=== PATIENT | male | born 1965 | race Caucasian/White ===

== ENCOUNTER 2016-08-19 20:25 | Observation (INO) | payer OTHER ==
[~2016-08-19] VITALS: Ht 182.9 cm; Wt 98.2 kg
[2016-08-19] VITALS (10 sets, daily range): BP systolic 160–192; BP diastolic 80–103; PULSE 81–90; RESP 16–20; TEMP 98–98.5; O2SAT 96–99
[~2016-08-19 20:25] MED LIST: ABIL5TAB6 PO; BACL10TA PO; DICL75 PO; PAXI20TA26 PO
--- NOTE | 2016-08-19 21:13 | PD ---
HPI Chief Complaint: Respiratory Symptoms Time Seen by Provider: 20:43 Travel History International Travel<30 days: No Contact w/Intl Traveler<30days: No History of Present Illness HPI So 51-year-old man who presents to the emergency department complaining of shortness of breath and sharp chest pain ongoing for the past 2 months or so. He states he notices it with exertion, really just after exertion. If he walks to the top of the hill to get a piece of equipment, when he gets to the top he has a chest pain. He goes away with rest. Describes a sharp, left-sided. He also states is getting winded easier. His felt overall like he's had less energy. He's never really had chest pain before. He's had PVCs in the past 6 some lightheadedness and palpitations, but never pain. His a strong family history of heart disease with an uncle who in his 50s, and his dad has had a CABG and 17 stents. He's been told he has high cholesterol in the past, is not treated for any medical problems. History Past Medical History Narrative Medical History of hyperlipidemia Social History Alcohol Use: Yes (2-3 beers, most days) Tobacco Use: No Allergies-Medications (Allergen,Severity, Reaction): Coded Allergies: Penicillin (Verified Allergy, Unknown, UNKNOWN, 08/19/16) PATIENT DOES NOT KNOW BUT WANTS ALLERGY Reported Meds & Prescriptions Reported Meds & Active Scripts Active Review of Systems Except as stated in HPI: all other systems reviewed are Neg Physical Exam Narrative GENERAL: 51-year-old man, generally well-appearing, no acute distress. SKIN: Focused skin assessment warm/dry. HEAD: Atraumatic. Normocephalic. NECK: Trachea midline. No JVD. CARDIOVASCULAR: Regular rate and rhythm. No murmur appreciated. RESPIRATORY: No accessory muscle use. Clear to auscultation. Breath sounds equal bilaterally. GASTROINTESTINAL: Abdomen soft, non-tender, nondistended. Hepatic and splenic margins not palpable. MUSCULOSKELETAL: No obvious deformities. No clubbing. No cyanosis. No edema. NEUROLOGICAL: Awake and alert. No obvious cranial nerve deficits. Motor grossly within normal limits. Normal speech. PSYCHIATRIC: Appropriate mood and affect; insight and judgment normal. Data Data Last Documented VS Vital Signs Date Time Temp Pulse Resp B/P Pulse Ox O2 Delivery O2 Flow Rate FiO2 6/15/17 22:00 84 18 165/80 96 Room Air 08/19/16 20:38 98.5 Orders Electrocardiogram (08/19/16 21:07) Complete Blood Count With Diff (08/19/16 21:07) Comprehensive Metabolic Panel (08/19/16 21:07) Magnesium (Mg) (08/19/16 21:07) Prothrombin Time / Inr (Pt) (08/19/16 21:07) Act Partial Throm Time (Ptt) (08/19/16 21:07) Troponin I (08/19/16 21:07) Lipase (08/19/16 21:07) Chest, Single Ap (08/19/16 21:07) Ecg Monitoring (08/19/16 21:) Bilateral Bp Monitoring (08/19/16:) Iv Access Insert/Monitor (08/19/16 21:) Oximetry (08/19/16 21:07) Oxygen Administration (08/19/16 21:07) Aspirin Chew (Aspirin Chew) (08/19/16:15) Nitroglycerin 2% Oint (Nitroglycerin 2% (08/19/16 21:15) Sodium Chloride 0.9% Flush (Ns Flush) (08/19/16:15) Sodium Chlorid 0.9% 500 Ml Inj (Ns 500 M (08/19/16 21:15) Admit Order (Ed Use Only) (08/19/16 ) Place In Observation (08/19/16 22:44) Activity Bed Rest With Brp (08/19/16 22:44) Vital Signs (Adult) Q4H (08/19/16 22:44) Cardiac Rhythm .As Directed (08/19/16 22:44) Notify Dr: Other .PRN (08/19/16 22:44) Notify DrBobbi Parameters (08/19/16 22:44) Resp Oxygen Nasal Cannula (08/19/16 ) Ckmb (Isoenzyme) Profile (08/20/16 00:30) Ckmb (Isoenzyme) Profile (08/20/16 03:30) Troponin I (08/20/16 00:30) Troponin I (08/20/16 03:30) Electrocardiogram (08/20/16 00:30) Electrocardiogram (08/20/16 03:30) ^ Obtain (08/19/16 22:44) Sodium Chloride 0.9% Flush (Ns Flush) (08/19/16 22:45) Sodium Chloride 0.9% Flush (Ns Flush) (08/20/16 09:00) [employer] / Telemetry [email or web address] (08/19/16 22:44) Labs Laboratory Tests Test 08/19/16 21:10 White Blood Count 8.0 TH/MM3 Red Blood Count 4.92 MIL/MM3 Hemoglobin 15.7 GM/DL Hematocrit 45.9 % Mean Corpuscular Volume 93.3 FL Mean Corpuscular Hemoglobin 31.9 PG Mean Corpuscular Hemoglobin 34.2 % Concent Red Cell Distribution Width 12.2 % Platelet Count 222 TH/MM3 Mean Platelet Volume 9.4 FL Neutrophils (%) (Auto) 49.3 % Lymphocytes (%) (Auto) 35.2 % Monocytes (%) (Auto) 8.2 % Eosinophils (%) (Auto) 6.4 % Basophils (%) (Auto) 0.9 % Neutrophils # (Auto) 3.9 TH/MM3 Lymphocytes # (Auto) 2.8 TH/MM3 Monocytes # (Auto) 0.7 TH/MM3 Eosinophils # (Auto) 0.5 TH/MM3 Basophils # (Auto) 0.1 TH/MM3 CBC Comment DIFF FINAL Differential Comment Prothrombin Time 10.7 SEC Prothromb Time International 1.0 RATIO Ratio Activated Partial 28.6 SEC Thromboplast Time Sodium Level 140 MEQ/L Potassium Level 3.5 MEQ/L Chloride Level 105 MEQ/L Carbon Dioxide Level 22.5 MEQ/L Anion Gap 13 MEQ/L Blood Urea Nitrogen 12 MG/DL Creatinine 1.20 MG/DL Estimat Glomerular Filtration 64 ML/MIN Rate Random Glucose 143 MG/DL Calcium Level 8.5 MG/DL Magnesium Level 2.0 MG/DL Total Bilirubin 0.5 MG/DL Aspartate Amino Transf 30 U/L (AST/SGOT) Alanine Aminotransferase 57 U/L (ALT/SGPT) Alkaline Phosphatase 81 U/L Troponin I 0.05 NG/ML Total Protein 7.7 GM/DL Albumin 3.8 GM/DL Lipase 118 U/L [facility] Medical Decision Making Medical Screen Exam Complete: Yes Emergency Medical Condition: Yes Interpretation(s) My review of EKG: Normal sinus rhythm at a rate of 85, leftward axis, normal intervals, no definite evidence of acute ischemia. LABS: CBC unremarkable. CMP is unremarkable Lipase is normal Troponin is negative. Coags unremarkable Chest x-ray: Negative. Differential Diagnosis ACS, anxiety or stress, PE, heart failure, hypertension, other Narrative Course Medical decision making INITIAL cause a 47-year-old man who presents to the emergency department with appears to be exertional sharp left-sided chest pain ongoing for couple months was steadily worsening. Is concerning for ACS. His a strong family history. He looks overall well. Initial EKG is nondiagnostic. We'll check an initial labs, x-ray, plan on observation and the chest pain Center. Diagnosis Primary Impression: Chest pain Clay Rios MD Aug 19, 2016 21:13
[2016-08-19] MEDS ORDERED: NITROGLYCERIN 2% OINT 1 GM PACKET TOP ONE (21:15)
[2016-08-19] MEDS ORDERED: SODIUM CHLORIDE 0.9% FLUSH 10 ML FLUSH IVF PRN (21:15)
[2016-08-19] MEDS ORDERED: ASPIRIN 81 MG CHEW TAB PO ONE (21:15)
[2016-08-19] MEDS ORDERED: SODIUM CHLORID 0.9% 500 ML INJ 500 ML IV ONE (21:15)
[2016-08-19 21:20] LABS: AUTOMATED NEUTROPHIL # 3.9 TH/MM3 (1.8-7.7); BASOPHIL # 0.1 TH/MM3 (0-0.2); BASOPHIL % 0.9 % (0.0-2.0); EOSINOPHIL # 0.5 TH/MM3 (0-0.4); EOSINOPHIL % 6.4 % (0.0-4.0); HEMATOCRIT 45.9 % (39.0-51.0); HEMO FLAGS DIFF FINAL; LYMPH % 35.2 % (9.0-44.0); LYMPHOCYTE # 2.8 TH/MM3 (1.0-4.8); MEAN CELL VOLUME 93.3 FL (80.0-100.0); MEAN CORPUSCULAR HEMOGLOBIN 31.9 PG (27.0-34.0); MEAN CORPUSCULAR HGB CONC 34.2 % (32.0-36.0); MONO % 8.2 % (0.0-8.0); NEUT % 49.3 % (16.0-70.0); PLATELET COUNT 222 TH/MM3 (150-450); RED BLOOD COUNT 4.92 MIL/MM3 (4.50-5.90); RED CELL DISTRIBUTION WIDTH 12.2 % (11.6-17.2)
[2016-08-19 21:31] LABS: CHLORIDE 105 MEQ/L (98-107); POTASSIUM 3.5 MEQ/L (3.5-5.1); SODIUM (NA) 140 MEQ/L (136-145)
[2016-08-19 21:35] LABS: ANION GAP 13 MEQ/L (5-15); BICARBONATE 22.5 MEQ/L (21.0-32.0); BLOOD UREA NITROGEN 12 MG/DL (7-18)
[2016-08-19 21:36] LABS: APTT (PATIENT) 28.6 SEC (24.3-30.1); PROTHROMBIN TIME - PATIENT 10.7 SEC (9.8-11.6)
[2016-08-19 21:37] LABS: ALT (GPT) 57 U/L (12-78)
[2016-08-19 21:38] LABS: AST (GOT) 30 U/L (15-37); GLOMERULAR FILTRATION RATE 64 ML/MIN (>89)
[2016-08-19 21:39] LABS: TOTAL BILIRUBIN ADULT 0.5 MG/DL (0.2-1.0)
[2016-08-19 21:40] LABS: ALKALINE PHOSPHATASE 81 U/L (45-117)
--- NOTE | 2016-08-19 21:50 | RADHPO ---
EXAM DATE/TIME: 08/19/2016 21:39 [facility] COMPARISON: No previous studies available for comparison. INDICATIONS : Chest pain and shortness of breath for two weeks. MEDICAL HISTORY : None. SURGICAL HISTORY : None. ENCOUNTER: Initial ACUITY: 2 weeks PAIN SCORE: 4/10 LOCATION: chest Center FINDINGS: A single view of the chest demonstrates the lungs to be symmetrically aerated without evidence of mas s, infiltrate or effusion. The cardiomediastinal contours are unremarkable. Osseous structures are intact. CONCLUSION: No evidence of acute cardiopulmonary disease. Boby Olivera MD on August 19, 2016 at 21:47 Board Certified Radiologist. This report was verified electronically.
[2016-08-19] MEDS ORDERED: SODIUM CHLORIDE 0.9% FLUSH 10 ML FLUSH PRN (22:45)
[2016-08-20] VITALS: BP 145/83; PULSE 74; RESP 18; TEMP 96.4; O2SAT 97
[2016-08-20 01:13] LABS: CREATINE KINASE 111 U/L (39-308)
[2016-08-20 01:25] LABS: CKMB 0.7 NG/ML (0.5-3.6)
[2016-08-20 04:00] VITALS: BP 122/78; PULSE 69; RESP 18; TEMP 97; O2SAT 98
[2016-08-20 07:16] VITALS: PULSE 79
[2016-08-20 08:00] VITALS: BP 146/91; PULSE 68; RESP 18; TEMP 96.8; O2SAT 99
[2016-08-20] MEDS ORDERED: SODIUM CHLORIDE 0.9% FLUSH 10 ML FLUSH SCH (09:00)
--- NOTE | 2016-08-20 09:39 | HHI.HP ---
cc: Faizan Monterroso MD HPI Service [facility] Primary Care Physician No Primary Care Physician Admission Diagnosis chest pain Diagnoses: (1) SOB (shortness of breath) Diagnosis: Principal (2) Chest pain Diagnosis: Principal (3) HTN (hypertension) Diagnosis: Principal (4) Hypertensive urgency Diagnosis: Principal Chief Complaint: difficulty breathing, chest pain Travel History International Travel<30 Days: No Contact w/Intl Traveler <30 Da: No Traveled to Known Affected Are: No History of Present Illness Written by Elisa Fry PA-C acting as scribe for Dr. Duenas on 08/20/16 at ~0930. 51-year-old male with history of hyperlipidemia and HTN not currently on medications as well as daily alcohol use presents with complaint of difficulty breathing and chest pain. States patient states that over the last couple of weeks has been hard to breathe. He states he was doing yard work on Tuesday and couldn't catch his breath. 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 He states he additionally had sharp knife-like pains over the left anterior chest intermittently and lasting a couple of minutes at a time. He states he had these even at night when he was sleeping. He states the pain occurs more so after exertion while he is recovering rather than during it. He denies any radiation of pain elsewhere. He does state that the nitroglycerin procedure the ED helped his breathing significantly. The patient has a significant family history of heart disease. Patient had a treadmill test performed in 2008 which was negative. He states he had a nuclear treadmill test about 20 years ago when he saw his father's meat carver. He states he has a history of frequent PVCs and they can last between 2-3 minutes at a time. Patient has appointment with primary care physician, Dr. Monterroso, next week. Review of Systems Except as stated in HPI: all other systems reviewed are Neg Past Family Social History Past Medical History Untreated hyperlipidemia and hypertension Past Surgical History L4-L5 surgery Appendectomy Reported Medications None Allergies: Coded Allergies: Penicillin (Verified Allergy, Unknown, UNKNOWN, 08/19/16) PATIENT DOES NOT KNOW BUT WANTS ALLERGY Family History Father: Diabetic, 14 stents, CABG 4 at age 68. Paternal uncle: at age 52 from [place]. Sister: Hypertension; brain aneurysm which was clipped Social History Patient drinks 4-5 beers per day. He has never gone through withdrawal. Denies any history of tobacco use. Denies any history of illicit drug use. Physical Exam Vital Signs Vital Signs Date Time Temp Pulse Resp B/P Pulse Ox O2 Delivery O2 Flow Rate FiO2 08/20/16 08:00 96.8 68 18 146/91 99 08/20/16 04:00 97.0 69 18 122/78 98 08/20/16 00:00 96.4 74 18 145/83 97 08/19/16 23:15 98.0 82 18 161/94 97 08/19/16 22:52 96 21 08/19/16 22:30 90 18 176/91 96 Room Air 08/19/16 22:00 84 18 165/80 96 Room Air 08/19/16 21:45 88 18 177/86 96 Room Air 08/19/16 21:30 86 18 182/93 97 Room Air 08/19/16 21:15 90 20 174/98 97 Room Air 08/19/16 21:00 86 20 98 Room Air 08/19/16 20:45 98 Room Air 08/19/16 20:45 87 20 184/94 98 Room Air 192/91 08/19/16 20:45 98 Room Air 08/19/16 20:38 98.5 85 16 160/103 99 Physical Exam GENERAL: This is a well-nourished, well-developed patient, in no apparent distress. SKIN: No rashes, ecchymoses or lesions. Warm and dry. HEAD: Atraumatic. Normocephalic. EYES: No scleral icterus. No injection or drainage. ENT: MMM. Uvula midline. Airway patent. CHEST: No reproducible chest wall tenderness. CARDIOVASCULAR: Regular rate and rhythm without murmurs, gallops, or rubs. RESPIRATORY: Clear to auscultation. Breath sounds equal bilaterally. No wheezes , rales, or rhonchi. GASTROINTESTINAL: Abdomen soft, non-tender, nondistended. MUSCULOSKELETAL: No lower extremity edema bilaterally. NEUROLOGICAL: Awake and alert. Motor grossly within normal limits. Normal speech. Laboratory Laboratory Tests Test 08/19/16 08/20/16 08/20/16 21:10 00:40 03:25 White Blood Count 8.0 Red Blood Count 4.92 Hemoglobin 15.7 Hematocrit 45.9 Mean Corpuscular Volume 93.3 Mean Corpuscular Hemoglobin 31.9 Mean Corpuscular Hemoglobin 34.2 Concent Red Cell Distribution Width 12.2 Platelet Count 222 Mean Platelet Volume 9.4 Neutrophils (%) (Auto) 49.3 Lymphocytes (%) (Auto) 35.2 Monocytes (%) (Auto) 8.2 Eosinophils (%) (Auto) 6.4 Basophils (%) (Auto) 0.9 Neutrophils # (Auto) 3.9 Lymphocytes # (Auto) 2.8 Monocytes # (Auto) 0.7 Eosinophils # (Auto) 0.5 Basophils # (Auto) 0.1 CBC Comment DIFF FINAL Differential Comment Prothrombin Time 10.7 Prothromb Time International 1.0 Ratio Activated Partial 28.6 Thromboplast Time Sodium Level 140 Potassium Level 3.5 Chloride Level 105 Carbon Dioxide Level 22.5 Anion Gap 13 Blood Urea Nitrogen 12 Creatinine 1.20 Estimat Glomerular Filtration 64 Rate Random Glucose 143 Calcium Level 8.5 Magnesium Level 2.0 Total Bilirubin 0.5 Aspartate Amino Transf 30 (AST/SGOT) Alanine Aminotransferase 57 (ALT/SGPT) Alkaline Phosphatase 81 Troponin I 0.05 0.05 0.05 Total Protein 7.7 Albumin 3.8 Lipase 118 Total Creatine Kinase 111 77 Creatine Kinase MB 0.7 Result Diagram: 08/19/16210908/19/162109 Imaging Last Impressions Chest X-Ray 08/19/162106 Signed Impressions: Service Date/Time: August 21:39 - CONCLUSION: No evidence of acute cardiopulmonary disease. Boby Olivera MD Assessment and Plan Assessment and Plan 51-year-old male with: Chest pain/shortness of breath: Patient has had sharp pain over the left chest, but what may be of more concern is his shortness of breath. He had relief with nitroglycerin. Troponin times 3 of 0.05. EKGs 3 with left axis deviation and no evidence of ischemia. There are some supraventricular PVCs present; also has incomplete right bundle branch block. -Continue 325 mg daily aspirin -Nitroglycerin/[place]/morphine prn chest pain -Telemetry -Patient to undergo nuclear stress test as ETT is contraindicated due to history of frequent PVCs. Hypertension: History of untreated hypertension. Patient has been persistently hypertensive here with hypertensive urgency reaching 192/91. -Clonidine prn -May need to start on medication on discharge Daily alcohol use: Patient denies ever going through withdrawal. Interpretive Naturalist on cessation. GI prophylaxis: Protonix 40 mg by mouth daily DVT prevention: SCDs This note was transcribed by néstor DUONG I, Dr. Aly Duenas personally performed the history, physical exam, and medical decision making; and confirmed the accuracy of the information in the transcribed note. Authenticated by Dr. Aly Duenas on 08/20/16 at 13:26. Elisa Fry Aug 20, 2016 09:39 Aly Duenas MD Aug 20, 2016 13:26
[2016-08-20] MEDS ORDERED: ACETAMINOPHEN/HYDROcodone 325 MG/7.5 MG TAB PO PRN (11:00)
[2016-08-20] MEDS ORDERED: NITROGLYCERIN 0.4 MG SL 25 TABS/BTL SL PRN (11:00)
[2016-08-20] MEDS ORDERED: ASPIRIN EC 325 MG TABEC PO SCH (11:00)
[2016-08-20] MEDS ORDERED: cloNIDine HCL 0.1 MG TAB PO PRN (11:00)
[2016-08-20] MEDS ORDERED: PANTOPRAZOLE SOD 40 MG DELAYED RELEASE TAB PO SCH (11:00)
[2016-08-20] MEDS ORDERED: ACETAMINOPHEN 500 MG CPLT PO PRN (11:00)
[2016-08-20] MEDS ORDERED: MORPHINE SULFATE 4 MG/ML INJ IV PRN (11:00)
[2016-08-20] MEDS ORDERED: REGADENOSON INJ 0.4 MG/5 ML SYR IV ONE (11:57)
[2016-08-20 12:00] VITALS: BP 155/104; PULSE 71; RESP 18; TEMP 97.4; O2SAT 98
--- NOTE | 2016-08-20 13:33 | RADHPO ---
EXAM DATE/TIME: 08/20/2016 11:51 CORRECTION~Corrected on: August 25, 2016; added Radiation Dose and Ejection Fraction [facility] COMPARISON: No previous studies available for comparison. INDICATIONS : Left sided chest pain with dyspnea, palpitations and lightheaded. Angina. DOSE: 25.4 mCi Tc99m Myoview at stress. 8.5 mCi Tc99m Myoview at rest. 0.4 mg Lexiscan RADIATION DOSE: ~5.37 CTDIvol(mGy) STRESS SYMPTOMS: Dyspnea, lightheaded and right shoulder pain. EJECTION FRACTION: 49% MEDICAL HISTORY : Hypertension. SURGICAL HISTORY : Appendectomy. Lumbar surgery. ENCOUNTER: Initial ACUITY: 2 weeks PAIN SCALE: 4/10 LOCATION: Left chest TECHNIQUE: The patient underwent pharmacologic stress with infusion of prescribed dose. Continuous ECG tracing was monitored during stress. Gated SPECT imaging was performed after stress and conventional SPECT imaging was performed at rest. The examination was performed on a SPECT/CT scanner, both attenuation and non- corrected datasets were reviewed. FINDINGS: DISTRIBUTION: The maximum perfused segment at stress is in the anterolateral wall. PERFUSION STUDY: The pattern of perfusion at stress is within normal limits. GATED STUDY: There is intact wall motion and thickening without hypokinetic or dyskinetic segments. CONCLUSION: 1. No reversible perfusion defect to suggest stress-induced myocardial ischemia identified. RISK CATEGORY: Low (<1% Annual Mortality Rate) Bal Rm MD on August 20, 2016 at 13:29 Board Certified Radiologist. This report was verified electronically. [facility]
[2016-08-20] MEDS ORDERED: LISI10TA3 PO (14:26)
--- NOTE | 2016-08-20 14:26 | HHI.DCPOC ---
Discharge Care Plan Diagnosis: (1) Chest pain (2) SOB (shortness of breath) (3) HTN (hypertension) (4) Hypertensive urgency Your Health Problems Are: Chest Pain Goals to Promote Your Health * To prevent worsening of your condition and complications * To maintain your health at the optimal level Directions to Meet Your Goals Take your medications as prescribed Follow your dietary instruction Follow activity as directed Keep your appointments as scheduled Take your immunizations and boosters as scheduled If your symptoms worsen call your PCP, if no PCP go to Urgent Care Center or Emergency Room Smoking is Dangerous to Your Health. Avoid second hand smoke Call the 24-hour hour crisis hotline for domestic abuse at Elisa Fry Aug 20, 2016 14:26
--- NOTE | 2016-08-20 14:30 | TR ---
Date Performed: 08/20/2016 Time Performed: 12:09:14 DOCTOR: Elpidio Winters DRUG LIST: CLINICAL HISTORY: CHEST PAIN REASON FOR TEST: Chest pain REASON FOR ENDING: OBSERVATION: CONCLUSION: Lexiscan stress test was performed under standard four minute protocol. Radionuclid e was injected one minute prior to ending the test. No electrocardiographic abormalities were present to suggest ischemia. Nuclear imaging and interpretation are pending. COMMENTS:
--- NOTE | 2016-08-20 22:29 | EKG ---
Date Performed: 08/20/2016 Time Performed: 03:15:10 PTAGE: 51 years EKG: Sinus rhythm WITH OCCASIONAL SUPRAVENTRICULAR PREMATURE COMPLEXES BORDERLINE LEFT AXIS DEVIATION POSSIBLE RIGHT V ENTRICULAR CONDUCTION DELAY BORDERLINE ECG PREVIOUS TRACING : 08/20/2016 00.17 DOCTOR: Mariah Esposito Interpretating Date/Time 08/20/2016 22:27:18
--- NOTE | 2016-08-20 22:31 | EKG ---
Date Performed: 08/20/2016 Time Performed: 00:17:54 PTAGE: 51 years EKG: Sinus rhythm MARKED LEFT AXIS DEVIATION ABNORMAL ECG PREVIOUS TRACING : 08/19/2016 20.59 DOCTOR: Mariah Esposito Interpretating Date/Time 08/20/2016 22:30:44
--- NOTE | 2016-08-20 22:35 | EKG ---
Date Performed: 08/19/2016 Time Performed: 20:59:11 PTAGE: 51 years EKG: Sinus rhythm WITH OCCASIONAL PREMATURE ATRIAL COMPLEXES BORDERLINE LEFT AXIS DEVIATION MINIMAL VOLTAGE CRITERIA FOR LVH, CONSIDER NORMAL VARIANT BORDERLINE ECG PREVIOUS TRACING : 09/06/2008 22.18 DOCTOR: Mariah Esposito Interpretating Date/Time 08/20/2016 22:34:06
== END 2016-08-20 15:41 | disposition home or self-care (01) ==
LOC: PHED 20:25 → PHEDA 22:46 → PH3B 23:23
PROVIDERS: ADMIT Family Medicine; ATTEND Family Medicine
DX: R07.89 Other chest pain (principal); R06.02 Shortness of breath; I49.3 Ventricular premature depolarization; I16.0 Hypertensive urgency; I45.10 Unspecified right bundle-branch block; Z88.0 Allergy status to penicillin; Z82.49 Family history of ischemic heart disease and other diseases of the circulatory system
CPT/HCPCS: 71010; 78452; 80053; 82550; 82552; 83690; 83735; 84484; 85025; 85610; 85730; 93005; 93017; 96360; 99285; A9502; G0378; J2785; J7040

== ENCOUNTER 2016-12-05 21:25 | Inpatient (IN) | payer OTHER ==
[~2016-12-05] VITALS: Ht 182.9 cm; Wt 96.0 kg
[~2016-12-05 21:25] MED LIST changes: -ABIL5TAB6 PO; -BACL10TA PO; -DICL75 PO; +LISI10TA3 PO; -PAXI20TA26 PO
[2016-12-05] MEDS ORDERED: SODIUM CHLOR 0.9% 1000 ML INJ 1,000 ML IV SCH (21:39)
[2016-12-05] MEDS ORDERED: ONDANSETRON HCL 4 MG/2 ML VIAL IVP ONE (21:45)
[2016-12-05] MEDS ORDERED: KETOROLAC TROMETHAMINE 30 MG/ML (IVP) VIAL IVP ONE (21:45)
[2016-12-05] MEDS ORDERED: MORPHINE SULFATE 4 MG/ML INJ IV PUSH ONE (21:45)
[2016-12-05 21:59] VITALS: O2SAT 98
[2016-12-05 22:06] LABS: AUTOMATED NEUTROPHIL # 4.6 TH/MM3 (1.8-7.7); BASOPHIL # 0.1 TH/MM3 (0-0.2); BASOPHIL % 1.1 % (0.0-2.0); EOSINOPHIL # 0.7 TH/MM3 (0-0.4); EOSINOPHIL % 6.8 % (0.0-4.0); HEMATOCRIT 45.7 % (39.0-51.0); HEMO FLAGS DIFF FINAL; LYMPH % 39.9 % (9.0-44.0); LYMPHOCYTE # 4.1 TH/MM3 (1.0-4.8); MEAN CELL VOLUME 95.6 FL (80.0-100.0); MEAN CORPUSCULAR HEMOGLOBIN 32.6 PG (27.0-34.0); MEAN CORPUSCULAR HGB CONC 34.1 % (32.0-36.0); MONO % 7.6 % (0.0-8.0); NEUT % 44.6 % (16.0-70.0); PLATELET COUNT 256 TH/MM3 (150-450); RED BLOOD COUNT 4.78 MIL/MM3 (4.50-5.90); RED CELL DISTRIBUTION WIDTH 13.1 % (11.6-17.2); WHITE BLOOD COUNT 10.3 TH/MM3 (4.0-11.0)
[2016-12-05 22:07] LABS: BLOOD, URINE LARGE (NEG); GLUCOSE,URINE NEG (NEG); KETONE, URINE NEG (NEG); NITRITE,URINE NEG (NEG); PH, URINE 5.5 (5.0-8.5)
[2016-12-05 22:09] VITALS: BP 174/97; PULSE 77; RESP 20; O2SAT 96
[2016-12-05 22:12] LABS: CHLORIDE 100 MEQ/L (98-107); POTASSIUM 3.2 MEQ/L (3.5-5.1); SODIUM (NA) 135 MEQ/L (136-145)
[2016-12-05 22:16] LABS: ANION GAP 9 MEQ/L (5-15); BICARBONATE 25.6 MEQ/L (21.0-32.0); BLOOD UREA NITROGEN 16 MG/DL (7-18)
--- NOTE | 2016-12-05 22:17 | PD ---
HPI Chief Complaint: Flank/Kidney Pain Time Seen by Provider: 21:36 Travel History International Travel<30 days: No Contact w/Intl Traveler<30days: No Traveled to known affect area: No History of Present Illness HPI Patient is a 51-year-old male who comes in complaining of left-sided flank pain that started suddenly when he returned home from a trip to [place]. He says the pain wraps around to his front. He has never had pain like this before. He did have an episode of vomiting when he arrived here. He denies fever or chills. He denies any issues urinating. He says the pain is "inside." He did not take anything at home for the pain. PFSH Past Medical History Arthritis: Yes Anxiety: Yes Heart Rhythm Problems: Yes (PVCs) Cancer: No Cardiac Catheterization: No Cardiovascular Problems: Yes High Cholesterol: Yes Chest Pain: Yes (on admit) Congestive Heart Failure: No Diabetes: No Diminished Hearing: No Endocrine: No Genitourinary: No Hypertension: Yes (Borderline) Immune Disorder: No Musculoskeletal: Yes Neurologic: No Psychiatric: No Reproductive: No Respiratory: No Immunizations Current: Yes Myocardial Infarction: No Tetanus Vaccination: < 5 Years Influenza Vaccination: No Past Surgical History Abdominal Surgery: Yes (appy) Appendectomy: Yes Cardiac Surgery: No Coronary Artery Bypass Graft: No Ear Surgery: No Endocrine Surgery: No Eye Surgery: No Genitourinary Surgery: No Gynecologic Surgery: No Neurologic Surgery: Yes (l4-l5 back surgery) Oral Surgery: No Thoracic Surgery: No Other Surgery: Yes Social History Alcohol Use: Yes (4-5 beers daily) Tobacco Use: No Substance Use: No Allergies-Medications (Allergen,Severity, Reaction): Coded Allergies: penicillin G (Unverified Allergy, Unknown, UNKNOWN, 12/05/16) PATIENT DOES NOT KNOW BUT WANTS ALLERGY Reported Meds & Prescriptions Reported Meds & Active Scripts Active Lisinopril 10 Mg Tab 10 Mg PO DAILY Review of Systems Except as stated in HPI: all other systems reviewed are Neg General / Constitutional: No: Fever, Chills HENT: No: Headaches, Lightheadedness Cardiovascular: No: Chest Pain or Discomfort Respiratory: No: Shortness of Breath Gastrointestinal: Positive: Nausea, Vomiting, Abdominal Pain Genitourinary: Positive: Flank Pain, No: Dysuria, Hematuria Skin: No Rash, No Change in Pigmentation Neurologic: No: Weakness, Dizziness Physical Exam Narrative GENERAL: Awake and alert, in no acute distress. SKIN: Focused skin assessment warm/dry. HEAD: Atraumatic. Normocephalic. EYES: Pupils equal and round. No scleral icterus. ENT: Mucous membranes pink and moist. NECK: Trachea midline. No JVD. CARDIOVASCULAR: Regular rate and rhythm. No murmur appreciated. RESPIRATORY: No accessory muscle use. Clear to auscultation. Breath sounds equal bilaterally. GASTROINTESTINAL: Abdomen soft, nondistended. Left sided CVA tenderness. Tender to palpation of the left lower quadrant suprapubic area. No rebound or guarding. MUSCULOSKELETAL: No obvious deformities. No clubbing. No cyanosis. No edema. NEUROLOGICAL: Awake and alert. No obvious cranial nerve deficits. Motor grossly within normal limits. Normal speech. PSYCHIATRIC: Appropriate mood and affect; insight and judgment normal. Data Data Last Documented VS Vital Signs Date Time Temp Pulse Resp B/P (MAP) Pulse Ox O2 Delivery O2 Flow Rate FiO2 12/05/16 22:09 77 20 174/97 (122) 96 Room Air Orders Orders Complete Blood Count With Diff (12/05/16 21:39) Comprehensive Metabolic Panel (12/05/16 21:39) Urinalysis - C+S If Indicated (12/05/16 21:39) Ct Abd/Pel W/O Iv Contrast (12/05/16 21:39) Iv Access Insert/Monitor (12/05/16 21:39) Ecg Monitoring (12/05/16 21:39) Oximetry (12/05/16 21:39) Morphine Inj (Morphine Inj) (12/05/16 21:45) Ondansetron Inj (Zofran Inj) (12/05/16 21:45) Sodium Chlor 0.9% 1000 Ml Inj (Ns 1000 M (12/05/16 21:39) Sodium Chloride 0.9% Flush (Ns Flush) (12/05/16 21:45) Ketorolac Inj (Toradol Inj) (12/05/16 21:45) Hydromorphone Pf Inj (Dilaudid Pf Inj) (12/05/16 22:30) Potassium Chloride (Kcl) (12/05/16 22:30) Hydromorphone Pf Inj (Dilaudid Pf Inj) (12/05/16 23:30) Sodium Chlor 0.9% 1000 Ml Inj (Ns 1000 M (12/05/16 23:30) Labs Laboratory Tests Test 12/05/16 21:48 12/05/16 21:58 White Blood Count 10.3 TH/MM3 Red Blood Count 4.78 MIL/MM3 Hemoglobin 15.6 GM/DL Hematocrit 45.7 % Mean Corpuscular Volume 95.6 FL Mean Corpuscular Hemoglobin 32.6 PG Mean Corpuscular Hemoglobin Concent 34.1 % Red Cell Distribution Width 13.1 % Platelet Count 256 TH/MM3 Mean Platelet Volume 9.9 FL Neutrophils (%) (Auto) 44.6 % Lymphocytes (%) (Auto) 39.9 % Monocytes (%) (Auto) 7.6 % Eosinophils (%) (Auto) 6.8 % Basophils (%) (Auto) 1.1 % Neutrophils # (Auto) 4.6 TH/MM3 Lymphocytes # (Auto) 4.1 TH/MM3 Monocytes # (Auto) 0.8 TH/MM3 Eosinophils # (Auto) 0.7 TH/MM3 Basophils # (Auto) 0.1 TH/MM3 CBC Comment DIFF FINAL Differential Comment Blood Urea Nitrogen 16 MG/DL Creatinine 1.20 MG/DL Random Glucose 151 MG/DL Total Protein 8.0 GM/DL Albumin 4.0 GM/DL Calcium Level 8.5 MG/DL Alkaline Phosphatase 85 U/L Aspartate Amino Transf (AST/SGOT) 33 U/L Alanine Aminotransferase (ALT/SGPT) 54 U/L Total Bilirubin 0.4 MG/DL Sodium Level 135 MEQ/L Potassium Level 3.2 MEQ/L Chloride Level 100 MEQ/L Carbon Dioxide Level 25.6 MEQ/L Anion Gap 9 MEQ/L Estimat Glomerular Filtration Rate 64 ML/MIN Urine Color YELLOW Urine Turbidity SLIGHT Urine pH 5.5 Urine Specific [place] 1.026 Urine Protein 30 mg/dL Urine Glucose (UA) NEG mg/dL Urine Ketones NEG mg/dL Urine Occult Blood LARGE Urine Nitrite NEG Urine Bilirubin NEG Urine Leukocyte Esterase NEG Urine RBC 50-99 /hpf Urine WBC 0-2 /hpf Urine Squamous Epithelial Cells 0-5 /hpf Urine Uric Acid Crystals FEW /hpf Urine Bacteria OCC /hpf Urine Mucus MOD /lpf Urine Yeast (Budding) RARE Microscopic Urinalysis Comment CULT NOT INDICATED MDM Medical Decision Making Medical Screen Exam Complete: Yes Emergency Medical Condition: Yes Medical Record Reviewed: Yes Differential Diagnosis UTI versus pyelonephritis versus renal stone Narrative Course Patient is a 51-year-old male who comes in complaining of left-sided flank pain. Exam shows left CVA tenderness as well as tenderness to the left lower quadrant suprapubic area. IV established, labs sent. Patient given IV fluids, morphine, Toradol. He continues to have pain, given a dose of dilaudid. I spoke with Dr. Laughlin of urology, who says if his pain is controlled, he can be discharged to follow up in the office. Patient is still have severe pain and requiring more pain medicine. I spoke with Dr. Laughlin again who suggests admission to medicine. He says he will place a ureteral stent tomorrow, keep NPO after midnight. Diagnosis Primary Impression: Hydronephrosis with urinary obstruction due to ureteral calculus Admitting Information Admitting Physician Requests: Admit Shonna Feldman MD Dec 05, 2016 22:17
[2016-12-05 22:19] LABS: URINE COLOR YELLOW (YELLW/STRAW)
[2016-12-05 22:19] LABS: ALT (GPT) 54 U/L (12-78); AST (GOT) 33 U/L (15-37); GLOMERULAR FILTRATION RATE 64 ML/MIN (>89)
[2016-12-05 22:20] LABS: MUCUS URINE MOD /lpf (OCC); SQUAMOUS EPITHELIAL CELL URINE 0-5 /hpf (0-5)
[2016-12-05 22:20] LABS: TOTAL BILIRUBIN ADULT 0.4 MG/DL (0.2-1.0)
[2016-12-05 22:21] LABS: URIC ACID CRYSTALS, URINE FEW /hpf
[2016-12-05 22:22] LABS: ALKALINE PHOSPHATASE 85 U/L (45-117)
[2016-12-05 22:22] LABS: BACTERIA, URINE OCC /hpf; COMMENT (UR) CULT NOT INDICATED; CULTURE IF INDICATED CULT NOT INDICATED; WBC, URINE 0-2 /hpf (0-5)
[2016-12-05] MEDS ORDERED: POTASSIUM CHLORIDE 10 MEQ CONTROLLED RELEASE TAB PO ONE (22:30)
[2016-12-05] MEDS ORDERED: HYDROmorphone HCL PF 1 MG/ML VIAL IV PUSH ONE ×2 (22:30→23:30)
--- NOTE | 2016-12-05 22:36 | RADRPT ---
EXAM DATE/TIME: 12/05/2016 21:58 [facility] COMPARISON: No previous studies available for comparison. INDICATIONS : Left flank and back pain. Nausea. ORAL CONTRAST: No oral contrast ingested. RADIATION DOSE: 19.44 CTDIvol (mGy) MEDICAL HISTORY : None SURGICAL HISTORY : Appendectomy. Fusion, lumbar. ENCOUNTER: Initial ACUITY: 1 day PAIN SCALE: 9/10 LOCATION: Left flank TECHNIQUE: No colic protocol. Volumetric scanning of the abdomen and pelvis was performed. Using automated exp osure control and adjustment of the mA and/or kV according to patient size, radiation dose was kept a s low as reasonably achievable to obtain optimal diagnostic quality images. DICOM format image data is available electronically for review and comparison. FINDINGS: Right side: No evidence of hydronephrosis. 4 mm calcified stones in the upper pole and lower pole. Normal dimen myron of the ureter and no calcifications in the ureter. Left side: There is a 7 mm calcified stone in the proximal one third of the left ureter causing mild proximal ur eteric dilation and mild hydronephrosis. 2 mm calcified stone collecting system of the lower pole. Bladder: Smooth margins. No calcifications within the lumen. Other: No calcified gallstones. No dilated loops of small or large bowel. Small fat-containing right ingui nal hernia. CONCLUSION: 1. 7 mm obstructing the proximal left ureteric stone. 2. Upper and lower pole non-obstructing calcified stones in the right kidney measuring 4 mm or less. Lance Garcia MD on December 05, 2016 at 22:31 Board Certified Radiologist. This report was verified electronically.
[2016-12-05] MEDS ORDERED: SODIUM CHLOR 0.9% 1000 ML INJ 1,000 ML IV ONE (23:30)
[2016-12-06] VITALS (8 sets, daily range): BP systolic 130–180; BP diastolic 84–110; PULSE 65–105; RESP 16–18; TEMP 96.3–98.1; O2SAT 96–99
[2016-12-06] MEDS ORDERED: amLODIPine BESYLATE 5 MG TAB PO ONE (00:15)
[2016-12-06] MEDS ORDERED: TAMSULOSIN HCL 0.4 MG CAP PO ONE (00:15)
[2016-12-06] MEDS: HYDROmorphone HCL PF 1 MG/ML VIAL IV PRN ×4 (00:20→18:42)
[2016-12-06] MEDS: ONDANSETRON HCL 4 MG/2 ML VIAL IV PRN ×3 (00:20→10:02)
[2016-12-06] MEDS ORDERED: hydrALAZINE HCL 20 MG/ML VIAL IV PUSH ONE (01:15)
[2016-12-06] MEDS: SODIUM CHLORIDE 0.9% FLUSH 10 ML FLUSH IV FLUSH PRN ×2 (03:19→22:14)
[2016-12-06] MEDS ORDERED: cloNIDine HCL 0.1 MG TAB PO PRN (05:30)
[2016-12-06 07:13] LABS: BICARBONATE 24.3 MEQ/L (21.0-32.0); POTASSIUM 4.2 MEQ/L (3.5-5.1)
[2016-12-06] MEDS ORDERED: LORazepam 2 MG/ML VIAL IV PUSH PRN ×4 (08:15)
[2016-12-06] MEDS ORDERED: LORazepam 1 MG TAB PO PRN (08:15)
[2016-12-06] MEDS ORDERED: FLUMAZENIL 0.5 MG/5 ML VIAL IV PUSH PRN (08:15)
[2016-12-06] MEDS ORDERED: LORazepam 2 MG TAB PO PRN (08:15)
--- NOTE | 2016-12-06 08:19 | HHI.HP ---
HPI Service [facility] Hospitalists Primary Care Physician Faizan Monterroso MD Admission Diagnosis obstructing kidney stone, intractable pain Chief Complaint: Left-sided flank pain. Travel History International Travel<30 Days: No Contact w/Intl Traveler <30 Da: No Traveled to Known Affected Are: No History of Present Illness 51-year-old male with hypertension and history of PVCs and chronic lumbar ago presented to the ER yesterday for sudden onset left-sided flank pain. He notes that he has and bending over and [place] this past weekend and after they had arrived home yesterday afternoon he suddenly had left-sided flank pain. He reports that the pain did radiate around to his left lower abdomen. Denied any hematuria or dysuria. No fevers or chills. No trauma to the area. There's been no rash noted. Pain was so significant that it caused him to vomit a couple of times. ER evaluation revealed slightly increased creatinine 1.2 urinalysis with hematuria and CT scan noted for 7 mm obstructing stone in the left ureter. He was given IV fluids and pain medications. Despite the pain medications he still had significant pain and some episodes of vomiting. Urology was contacted and advised to admission to medical service for likely stone retrieval and stent placement today. Patient has been receiving Dilaudid overnight and states that the pain is tolerable but not completely controlled with the Dilaudid. Review of Systems Constitutional: COMPLAINS OF: Diaphoretic episodes, DENIES: Fatigue, Fever, Weight gain, Weight loss, Chills, Dizziness, Change in appetite, Night Sweats Endocrine: DENIES: Heat/cold intolerance, Polydipsia, Polyuria, Polyphagia Eyes: DENIES: Blurred vision, Diplopia, Eye inflammation, Eye pain, Vision loss , Photosensitivity, Double Vision Ears, nose, mouth, throat: DENIES: Tinnitus, Hearing loss, Vertigo, Nasal discharge, Oral lesions, Throat pain, Hoarseness, Ear Pain, Running Nose, Epistaxis, Sinus Pain, Toothache, Odynophagia Respiratory: DENIES: Apneas, Cough, Snoring, Wheezing, Hemoptysis, Sputum production, Shortness of breath Cardiovascular: DENIES: Chest pain, Palpitations, Syncope, Dyspnea on Exertion , PND, Lower Extremity Edema, Orthopnea, Claudication Gastrointestinal: COMPLAINS OF: Nausea, Vomiting, DENIES: Abdominal pain, Black stools, Bloody stools, BRB per rectum, Constipation, Diarrhea, GERD, Reflux, Difficulty Swallowing, Anorexia, See HPI Musculoskeletal: COMPLAINS OF: Back pain Integumentary: DENIES: Abnormal pigmentation, Nail changes, Pruritus, Rash Hematologic/lymphatic: DENIES: Bruising, Lymphadenopathy Immunologic/allergic: DENIES: Eczema, Urticaria Neurologic: DENIES: Abnormal gait, Headache, Localized weakness, Paresthesias, Seizures, Speech Problems, Tremor, Poor Balance Psychiatric: DENIES: Anxiety, Confusion, Mood changes, Depression, Hallucinations, Agitation, Suicidal Ideation, Homicidal Ideation, Delusions, History of Bipolar, History of Schizophrenia Other Left flank pain. Denies hematuria. Past Family Social History Past Medical History Hypertension Frequent PVCs Lumbar degenerative disc disease Daily alcohol use. Past Surgical History L4-L5 disc surgery in the past Appendectomy in the distant past Reported Medications Lisinopril 10 mg a day Metoprolol he is not sure the dose and I cannot access the records due to electronic health record technical difficulties. We'll try 50 mg twice a day. Allergies: Coded Allergies: penicillin G (Unverified Allergy, Unknown, UNKNOWN, 12/05/16) PATIENT DOES NOT KNOW BUT WANTS ALLERGY Family History Father and uncle both had coronary artery disease, father had diabetes sister has hypertension and had a brain aneurysm as well Social History Denies alcohol or tobacco use Drinks 3-5 beers nearly daily. Has never had any alcohol withdrawal. Reports that he'll abstain from alcohol 3-4 days without any notable symptoms of alcohol withdrawal. Lives with his Works for [employer] Physical Exam Vital Signs Vital Signs Date Time Temp Pulse Resp B/P (MAP) Pulse Ox O2 Delivery O2 Flow Rate FiO2 12/06/16 04:00 96.6 105 18 162/110 (127) 97 12/06/16 01:25 12/06/16 01:25 92 18 180/98 (125) 96 Room Air 12/06/16 00:50 18 12/06/16 00:02 78 18 180/98 (125) 99 Room Air 12/06/16 00:01 18 12/05/16 22:09 77 20 174/97 (122) 96 Room Air 12/05/16 22:08 20 12/05/16 21:59 98 Room Air Physical Exam GENERAL: This is a well-nourished, well-developed patient, in no apparent distress. SKIN: No rashes, ecchymoses or lesions. Cool and dry. HEAD: Atraumatic. Normocephalic. No temporal or scalp tenderness. EYES: Pupils equal round and reactive. Extraocular motions intact. No scleral icterus. No injection or drainage. ENT: Nose without bleeding, purulent drainage or septal hematoma. Throat without erythema, tonsillar hypertrophy or exudate. Uvula midline. Airway patent. NECK: Trachea midline. No JVD or lymphadenopathy. Supple, nontender, no meningeal signs. CARDIOVASCULAR: Regular rate and rhythm without murmurs, gallops, or rubs. RESPIRATORY: Clear to auscultation. Breath sounds equal bilaterally. No wheezes , rales, or rhonchi. GASTROINTESTINAL: Abdomen soft, non-tender, nondistended. No hepato-splenomegaly , or palpable masses. No guarding. MUSCULOSKELETAL: Extremities without clubbing, cyanosis, or edema. No joint tenderness, effusion, or edema noted. No calf tenderness. Negative Homans sign bilaterally. NEUROLOGICAL: Awake and alert. Cranial nerves II through XII intact. Motor and sensory grossly within normal limits. Five out of 5 muscle strength in all muscle groups. Normal speech. Laboratory Laboratory Tests Test 12/05/16 21:48 12/05/16 21:58 12/06/16 05:40 White Blood Count 10.3 Red Blood Count 4.78 Hemoglobin 15.6 Hematocrit 45.7 Mean Corpuscular Volume 95.6 Mean Corpuscular Hemoglobin 32.6 Mean Corpuscular Hemoglobin Concent 34.1 Red Cell Distribution Width 13.1 Platelet Count 256 Mean Platelet Volume 9.9 Neutrophils (%) (Auto) 44.6 Lymphocytes (%) (Auto) 39.9 Monocytes (%) (Auto) 7.6 Eosinophils (%) (Auto) 6.8 Basophils (%) (Auto) 1.1 Neutrophils # (Auto) 4.6 Lymphocytes # (Auto) 4.1 Monocytes # (Auto) 0.8 Eosinophils # (Auto) 0.7 Basophils # (Auto) 0.1 CBC Comment DIFF FINAL Differential Comment Blood Urea Nitrogen 16 18 Creatinine 1.20 1.40 Random Glucose 151 127 Total Protein 8.0 Albumin 4.0 Calcium Level 8.5 8.1 Alkaline Phosphatase 85 Aspartate Amino Transf (AST/SGOT) 33 Alanine Aminotransferase (ALT/SGPT) 54 Total Bilirubin 0.4 Sodium Level 135 136 Potassium Level 3.2 4.2 Chloride Level 100 104 Carbon Dioxide Level 25.6 24.3 Anion Gap 9 8 Estimat Glomerular Filtration Rate 64 54 Urine Color YELLOW Urine Turbidity SLIGHT Urine pH 5.5 Urine Specific [place] 1.026 Urine Protein 30 Urine Glucose (UA) NEG Urine Ketones NEG Urine Occult Blood LARGE Urine Nitrite NEG Urine Bilirubin NEG Urine Leukocyte Esterase NEG Urine RBC 50-99 Urine WBC 0-2 Urine Squamous Epithelial Cells 0-5 Urine Uric Acid Crystals FEW Urine Bacteria OCC Urine Mucus MOD Urine Yeast (Budding) RARE Microscopic Urinalysis Comment CULT NOT INDICATED Result Diagram: 12/05/168 12/06/16 0540 Caprini VTE Risk Assessment Caprini VTE Risk Assessment: No/Low Risk (score <= 1) Caprini Risk Assessment Model Point Value = 1 Point Value = 2 Point Value = 3 Point Value = 5 Age 41-60 Minor surgery BMI > 25 kg/m2 Swollen legs Varicose veins or History of unexplained or recurrent spontaneous Oral contraceptives or hormone replacement Sepsis (< 1 month) Serious lung disease, including pneumonia (< 1 month) Abnormal pulmonary function Acute myocardial infarction Congestive heart failure (< 1 month) History of inflammatory bowel disease Medical patient at bed rest Age 61-74 Arthroscopic surgery Major open surgery (> 45 min) Laparoscopic surgery (> 45 min) Malignancy Confined to bed (> 72 hours) Immobilizing plaster cast Central venous access Age >= 75 History of VTE Family history of VTE Factor V Leiden Prothrombin [id number] Lupus anticoagulant Anticardiolipin antibodies Elevated serum homocysteine Heparin-induced thrombocytopenia Other congenital or acquired thrombophilia Stroke (< 1 month) Elective arthroplasty Hip, pelvis, or leg fracture Acute spinal cord injury (< 1 month) Prophylaxis Regimen Total Risk Factor Score Risk Level Prophylaxis Regimen 0-1 Low Early ambulation 2 Moderate Order ONE of the following: *Sequential Compression Device (SCD) *Heparin 5000 units SQ BID 3-4 Higher Order ONE of the following medications: *Heparin 5000 units SQ TID *Enoxaparin/Lovenox 40 mg SQ daily (WT < 150 kg, CrCl > 30 mL/min) *Enoxaparin/Lovenox 30 mg SQ daily (WT < 150 kg, CrCl > 10-29 mL/min) *Enoxaparin/Lovenox 30 mg SQ BID (WT < 150 kg, CrCl > 30 mL/min) AND/OR *Sequential Compression Device (SCD) 5 or more Highest Order ONE of the following medications: *Heparin 5000 units SQ TID (Preferred with Epidurals) *Enoxaparin/Lovenox 40 mg SQ daily (WT < 150 kg, CrCl > 30 mL/min) *Enoxaparin/Lovenox 30 mg SQ daily (WT < 150 kg, CrCl > 10-29 mL/min) *Enoxaparin/Lovenox 30 mg SQ BID (WT < 150 kg, CrCl > 30 mL/min) AND *Sequential Compression Device (SCD) Assessment and Plan Problem List: (1) Hydronephrosis with urinary obstruction due to ureteral calculus ICD Codes: N13.2 - Hydronephrosis with renal and ureteral calculous obstruction Status: Acute Plan: CT scan reviewed. Creatinine rising a bit. Dr. Laughlin to see patient today for hopeful stone retrieval and stent placement. Continue pain medication. Provide IV fluid. Patient was given amlodipine and tamsulosin last evening. Discussed likelihood of stones being composed of calcium oxalate. Briefly advised patient on low oxalate diet. (2) HTN (hypertension) ICD Codes: I10 - Essential (primary) hypertension Status: Chronic Plan: Continue medications. Use clonidine when necessary. (3) Alcohol consumption four to six days per week ICD Codes: Z78.9 - Other specified health status Status: Chronic Plan: No history of withdrawal despite 3-4 days of abstinence from alcohol per patient. We'll place on CIWA protocol. Assessment and Plan Hopefully discharge after stone retrieval and stent placement. Code Status full Discussed Condition With Patient and ER physician. Nikolay Daugherty MD PhD Dec 06, 2016 08:19
[2016-12-06] MEDS ORDERED: INFLUENZA VIRUS VACCINE (QUADRIVALENT) 0.5 ML SYR IM ONE (09:00)
[2016-12-06] MEDS: LISINOPRIL 10 MG TAB PO SCH (09:54)
[2016-12-06] MEDS: METOPROLOL TARTRATE 50 MG TAB PO SCH ×2 (09:54→22:09)
[2016-12-06] MEDS: SODIUM CHLOR 0.9% 1000 ML INJ 1,000 ML IV SCH ×2 (10:11→18:42)
[2016-12-06] MEDS ORDERED: cefTRIAXone INJ 1,000 MG in SODIUM CHLORIDE 0.9% INJ 100 ML IV ONE (12:15)
[2016-12-06] MEDS ORDERED: METO25TA3 PO (12:39)
[2016-12-06] MEDS ORDERED: POVIDONE IODINE 5% (ANTISEPSIS KIT) 4 APPLICATIONS EACH NARE PRN (12:45)
[2016-12-06] MEDS ORDERED: LACTATED RINGER'S 1000 ML IV PRN (12:45)
[2016-12-06] MEDS ORDERED: SODIUM CHLORID 0.9% 500 ML IV PRN (12:45)
[2016-12-06] MEDS ORDERED: CHLORHEXIDINE GLUCONATE 2 % 1 PACK (2 CLOTHS) TOPICAL PRN (12:45)
[2016-12-06] MEDS ORDERED: METOPROLOL TARTRATE 25 MG TAB PO PRN (12:45)
[2016-12-06] MEDS ORDERED: INSULIN HUMAN REGULAR 1,000 UNITS/10 ML VIAL SQ PRN (12:45)
[2016-12-06] MEDS ORDERED: MIDAZOLAM HCL 2 MG/2 ML VIAL ONE (12:47)
[2016-12-06] MEDS ORDERED: DEXAMETHASONE SOD PHOS 4 MG/ML VIAL ONE (12:47)
[2016-12-06] MEDS ORDERED: FAMOTIDINE 20 MG/2 ML VIAL ONE (12:47)
[2016-12-06] MEDS ORDERED: METOCLOPRAMIDE HCL 10 MG/2 ML VIAL ONE (12:47)
[2016-12-06] MEDS ORDERED: PROPOFOL 500 MG/50 ML INJ 50 ML ONE (12:52)
[2016-12-06] MEDS ORDERED: IOHEXOL 350 MG/ML 50 ML BTL (for RAD DIAG) OTHER ONE (14:24)
--- NOTE | 2016-12-06 14:40 | PD.CONS ---
HPI Service Urology Consult Requested By Dr. Feldman Reason for Consult Obstructing left ureteral calculus Primary Care Physician Faizan Monterroso MD Diagnosis: (1) Hydronephrosis with urinary obstruction due to ureteral calculus ICD Code: N13.2 - Hydronephrosis with renal and ureteral calculous obstruction (2) HTN (hypertension) ICD Code: I10 - Essential (primary) hypertension (3) Alcohol consumption four to six days per week ICD Code: Z78.9 - Other specified health status History of Present Illness 51-year-old gentleman who presented to the emergency room with acute onset left flank pain. Workup included a CT scan that demonstrated a 7 mm obstructing left proximal ureteral calculus causing left hydronephrosis. Also noted were 2 small nonobstructing right renal calculi. Patient was admitted for IV hydration and analgesic support and a urology consult placed. At the time of consultation the patient reports that his pain was well managed with intravenous medication. Patient has been afebrile. He denies gross hematuria. He denies a previous history of renal calculus disease.. Review of Systems Constitutional: DENIES: Fever, Chills, Night Sweats Cardiovascular: DENIES: Chest pain Gastrointestinal: COMPLAINS OF: Abdominal pain (left side) Genitourinary: DENIES: Hematuria, Dysuria Musculoskeletal: COMPLAINS OF: Back pain (left flank) Except as stated in HPI: all other systems reviewed are Neg Past Family Social History Past Medical History Hypertension Frequent PVCs Degenerative lumbar disc disease Past Surgical History Status post low back surgery Status post appendectomy Reported Medications Refer to EMR Allergies: Coded Allergies: penicillin G (Unverified Allergy, Unknown, UNKNOWN, 12/05/16) PATIENT DOES NOT KNOW BUT WANTS ALLERGY Active Ordered Medications Refer to EMR Family History Coronary artery disease Diabetes mellitus Hypertension Brain aneurysm Social History Moderate drinker 3-5 beers per day Denies tobacco or intravenous drug abuse Physical Exam Vital Signs Date Time Temp Pulse Resp B/P (MAP) Pulse Ox O2 Delivery O2 Flow Rate FiO2 12/06/16 12:42 98.3 73 18 149/75 (99) 100 12/06/16 12:00 98.1 74 18 130/86 (101) 98 12/06/16 10:36 18 12/06/16 08:00 97.7 83 18 163/101 (121) 98 12/06/16 04:00 96.6 105 18 162/110 (127) 97 12/06/16 01:25 12/06/16 01:25 92 18 180/98 (125) 96 Room Air 12/06/16 00:50 18 12/06/16 00:02 78 18 180/98 (125) 99 Room Air 12/06/16 00:01 18 12/05/16 22:09 77 20 174/97 (122) 96 Room Air 12/05/16 22:08 20 12/05/16 21:59 98 Room Air Physical Exam GENERAL: This is a well-nourished, well-developed patient, in no apparent distress. SKIN: No rashes, ecchymoses or lesions. Cool and dry. HEAD: Atraumatic. Normocephalic. No temporal or scalp tenderness. EYES: Pupils equal round and reactive. Extraocular motions intact. No scleral icterus. No injection or drainage. ENT: Nose without bleeding, purulent drainage or septal hematoma. Throat without erythema, tonsillar hypertrophy or exudate. Uvula midline. Airway patent. NECK: Trachea midline. No JVD or lymphadenopathy. Supple, nontender, no meningeal signs. CARDIOVASCULAR: Regular rate and rhythm without murmurs, gallops, or rubs. RESPIRATORY: Clear to auscultation. Breath sounds equal bilaterally. No wheezes , rales, or rhonchi. GASTROINTESTINAL: Abdomen soft, non-tender, nondistended. No hepato-splenomegaly , or palpable masses. No guarding. GENITOURINARY: No CVA tenderness. Normal phallus, testes bilaterally descended. MUSCULOSKELETAL: Extremities without clubbing, cyanosis, or edema. No joint tenderness, effusion, or edema noted. No calf tenderness. Negative Homans sign bilaterally. NEUROLOGICAL: Awake and alert. Cranial nerves II through XII intact. Motor and sensory grossly within normal limits. Five out of 5 muscle strength in all muscle groups. Normal speech. Lab results reviewed: Yes Laboratory Tests Test 12/05/16 21:48 12/05/16 21:58 12/06/16 05:40 White Blood Count 10.3 Red Blood Count 4.78 Hemoglobin 15.6 Hematocrit 45.7 Mean Corpuscular Volume 95.6 Mean Corpuscular Hemoglobin 32.6 Mean Corpuscular Hemoglobin Concent 34.1 Red Cell Distribution Width 13.1 Platelet Count 256 Mean Platelet Volume 9.9 Neutrophils (%) (Auto) 44.6 Lymphocytes (%) (Auto) 39.9 Monocytes (%) (Auto) 7.6 Eosinophils (%) (Auto) 6.8 Basophils (%) (Auto) 1.1 Neutrophils # (Auto) 4.6 Lymphocytes # (Auto) 4.1 Monocytes # (Auto) 0.8 Eosinophils # (Auto) 0.7 Basophils # (Auto) 0.1 CBC Comment DIFF FINAL Differential Comment Blood Urea Nitrogen 16 18 Creatinine 1.20 1.40 Random Glucose 151 127 Total Protein 8.0 Albumin 4.0 Calcium Level 8.5 8.1 Alkaline Phosphatase 85 Aspartate Amino Transf (AST/SGOT) 33 Alanine Aminotransferase (ALT/SGPT) 54 Total Bilirubin 0.4 Sodium Level 135 136 Potassium Level 3.2 4.2 Chloride Level 100 104 Carbon Dioxide Level 25.6 24.3 Anion Gap 9 8 Estimat Glomerular Filtration Rate 64 54 Urine Color YELLOW Urine Turbidity SLIGHT Urine pH 5.5 Urine Specific [place] 1.026 Urine Protein 30 Urine Glucose (UA) NEG Urine Ketones NEG Urine Occult Blood LARGE Urine Nitrite NEG Urine Bilirubin NEG Urine Leukocyte Esterase NEG Urine RBC 50-99 Urine WBC 0-2 Urine Squamous Epithelial Cells 0-5 Urine Uric Acid Crystals FEW Urine Bacteria OCC Urine Mucus MOD Urine Yeast (Budding) RARE Microscopic Urinalysis Comment CULT NOT INDICATED Result Diagram: 12/05/16214712/06/16 0540 Personally reviewed images: Yes Imaging Last Impressions Abdomen/Pelvis CT 12/05/162138 Signed Impressions: Service Date/Time: Monday, December 05, 2016 21:58 - CONCLUSION: 1. 7 mm obstructing the proximal left ureteric stone. 2. Upper and lower pole non-obstructing calcified stones in the right kidney measuring 4 mm or less. Lance Garcia MD Assessment and Plan Assessment and Plan Urologic impression: #1 obstructing 7 mm left proximal ureteral calculus causing hydronephrosis #2 several less than 4 mm nonobstructing right renal calculi Plan: #1 keep patient nothing by mouth #2 bring the patient to the operating suite today for cystoscopy, left retrograde pyelogram and left ureteral stent placement #3 will eventually require left sided shockwave lithotripsy as an outpatient #4 will manage the small right renal calculi conservatively Darrian Laughlin MD Dec 06, 2016 14:40
--- NOTE | 2016-12-06 14:48 | PD.OP ---
Operative Report Date of Surgery: Dec 06, 2016 Preoperative Diagnosis: (1) Hydronephrosis with urinary obstruction due to ureteral calculus Postoperative Diagnosis: (1) Hydronephrosis with urinary obstruction due to ureteral calculus Procedure: Cystoscopy, left retrograde pyelogram and left ureteral stent placement Anesthesia: General Surgeon: Darrian Laughlin Mechanic Industrial Truck(s): None Operation and Findings: Indication for procedure: Case of a pleasant 51-year-old gentleman who presented to the emergency room with acute onset left flank pain. Workup included a CT scan that demonstrated a 7 mm obstructing 7 mm proximal ureteral calculus. Patient presents now for cystoscopy, left retrograde pyelogram and left ureteral stent placement. Operative procedure in detail: Patient was brought to the operating room suite and placed supine on the cystoscopy table. He was then placed under general anesthesia. He was then prepped and draped in normal sterile fashion after being placed in the dorsolithotomy position. After proper timeout was undertaken proceeded with cystoscopic evaluation utilizing the rigid cystoscope with a 20 Luxembourgish sheath and 30 lens. The urethra was patent without stricture formation, the prostatic urethra was not obstructing, for the passive cystoscope within the urinary bladder revealed both right and left ureteral orifices to be in correct anatomic position. There was clear eflux of urine noted on the right side and there was no eflux noted on the left. I then proceeded to perform a left retrograde pyelogram study. The left kidney and proximal left ureter hydronephrotic however the stone itself could not be clearly seen. I then proceeded with passing a sensor 0.[address] up to the left kidney and a 6 Luxembourg[place] 26 cm double-J stent was placed over this wire utilizing both cystoscopic and fluoroscopic guidance. Once the stent was in proper position the trailing string was removed. There was a small amount of blood noted from the left ureteral orifice at stent placement and thus decision was made to place a 16 [place]bourgish/10 cc Rogers catheter. The patient tolerated the procedures without complications and was transferred to the PACU in satisfactory condition. It is anticipated that the patient will be discharged home later today with arrangements for outpatient shockwave lithotripsy. Darrian Laughlin MD Dec 06, 2016 14:47
[2016-12-06] MEDS ORDERED: PERC5TAB12 PO (14:54)
[2016-12-06] MEDS ORDERED: TAMS5CAP PO (14:56)
--- NOTE | 2016-12-06 16:02 | HHI.PR ---
Addendum to Inpatient Note Addendum Reason: Additional Documentation Additional Information Came by to visit patient after his cystoscopy with stent placement. He just returned to the room from KUB x-ray exam. Reports that he is feeling better since he has a stent in place. It is noted that he had some clots during the cystoscopy and Rogers is in place currently. Plan is to keep Rogers in place until urine is clear. Once urine has cleared Rogers will be removed. He will be discharged home on oral medication if pain remains controlled and is tolerating oral intake. He will follow-up with urologist as an outpatient for lithotripsy per their recommendations. Nikolay Daugherty MD PhD Dec 06, 2016 16:02
--- NOTE | 2016-12-06 16:08 | RADRPT ---
EXAM DATE/TIME: 12/06/2016 15:43 [facility] COMPARISON: No previous studies available for comparison. INDICATIONS : Evaluate for renal calculi. MEDICAL HISTORY : Kidney stones. SURGICAL HISTORY : Appendectomy. Lumbar fusion. ENCOUNTER: Subsequent ACUITY: 2 days PAIN SCORE: 3/10 LOCATION: abdomen, all quadrants. FINDINGS: The bowel gas pattern appears normal. No free air is identified. No organomegaly is evident. A double -J stent is present on the left in the expected position. No left-sided stones are seen. There is 1- 2 mm calculus overlying the right kidney. CONCLUSION: 1. 1-2 mm right-sided calculus. No left-sided stones are seen Elpidio Hernández MD on December 06, 2016 at 16:01 Board Certified Radiologist. This report was verified electronically.
[2016-12-06 17:14] LABS: HEMOGLOBIN A1a 1.1 %; HEMOGLOBIN A1b 0.8 %; HEMOGLOBIN Ao 85.8 %; HEMOGLOBIN F 0.9 %; HEMOGLOBIN LA1C 2.1 %; HEMOGLOBIN P3 3.6 %
[2016-12-06] MEDS ORDERED: HYDROmorphone HCL PF 1 MG/ML VIAL IV PRN (20:00)
[2016-12-06] MEDS: oxyCODONE/ACETAMINOPHEN 5 MG/325 MG TAB PO PRN (22:09)
[2016-12-07] VITALS: BP 131/82; PULSE 61; RESP 18; TEMP 97.5; O2SAT 98
[2016-12-07] MEDS: SODIUM CHLOR 0.9% 1000 ML INJ 1,000 ML IV SCH (04:16)
[2016-12-07] MEDS: oxyCODONE/ACETAMINOPHEN 5 MG/325 MG TAB PO PRN (05:09)
--- NOTE | 2016-12-07 07:15 | HHI.PR ---
Subjective Remarks Patient feeling much better regarding flank pain but does note flank pain and left suprapubic pain when he urinates since the stent has been placed. Overall feeling much less pain however. Tolerating oral intake well. Urinating well. He has not seen a stone is not sure if it is past or if it was removed during procedure yesterday. Objective Vitals Vital Signs Date Time Temp Pulse Resp B/P (MAP) Pulse Ox O2 Delivery O2 Flow Rate FiO2 12/07/16 00:00 97.5 61 18 131/82 (98) 98 12/06/16 22:00 97.5 65 16 135/84 (101) 98 12/06/16 16:00 97.6 79 18 143/94 (110) 98 12/06/16 15:30 97.9 82 14 138/75 (96) 96 Room Air 12/06/16 15:15 80 14 130/70 (90) 96 Room Air 12/06/16 15:00 83 14 119/70 (86) 94 Room Air 12/06/16 14:46 98.0 90 14 125/81 (96) 97 Room Air 12/06/16 14:46 90 12/06/16 12:42 98.3 73 18 149/75 (99) 100 12/06/16 12:00 98.1 74 18 130/86 (101) 98 12/06/16 10:36 18 12/06/16 08:00 97.7 83 18 163/101 (121) 98 GENERAL: No acute distress, awake and alert, cooperative. SKIN: Warm and dry. HEAD: Normocephalic. EYES: No scleral icterus. No injection or drainage. NECK: Supple, trachea midline. No JVD or lymphadenopathy. CARDIOVASCULAR: Regular rate and rhythm without murmurs, gallops, or rubs. RESPIRATORY: Breath sounds equal bilaterally. No accessory muscle use. GASTROINTESTINAL: Abdomen soft, non-tender, nondistended. Bowel sounds normal. MUSCULOSKELETAL: No cyanosis, or edema. BACK: Slight tenderness to palpation over left lower back. Result Diagram: 12/05/16 2148 12/06/16 2573 Urinary Catheter: No Vascular Central Line Catheter: No A/P Problem List: (1) Hydronephrosis with urinary obstruction due to ureteral calculus ICD Codes: N13.2 - Hydronephrosis with renal and ureteral calculous obstruction Status: Acute Plan: Status post cystoscopy with ureteral stent placement. Stone does not appear on the postprocedure KUB film. Patient overall feels better. We'll discharge home today. Discussed likelihood of stones being composed of calcium oxalate. Briefly advised patient on low oxalate diet. (2) HTN (hypertension) ICD Codes: I10 - Essential (primary) hypertension Status: Chronic Plan: Continue medications. Use clonidine when necessary. BP improved since pain subsided. (3) Alcohol consumption four to six days per week ICD Codes: Z78.9 - Other specified health status Status: Chronic Plan: No history of withdrawal despite 3-4 days of abstinence from alcohol per patient. We'll place on CIWA protocol. No indication of withdrawal during hospital stay. Discharge Planning Discharge home today. Nikolay Daugherty MD PhD Dec 07, 2016 07:15
[2016-12-07 08:00] VITALS: BP 149/81; PULSE 61; RESP 19; TEMP 97.8; O2SAT 98
[2016-12-07] MEDS: METOPROLOL TARTRATE 50 MG TAB PO SCH (09:00)
[2016-12-07] MEDS: LISINOPRIL 10 MG TAB PO SCH (09:35)
[2016-12-10] MEDS ORDERED: PERC5TAB12 PO (10:01)
[2016-12-14] MEDS ORDERED: METO50TA PO (15:28)
[2016-12-15] MEDS ORDERED: PERC5TAB12 PO (13:29)
== END 2016-12-07 11:00 | disposition home or self-care (01) | DRG 694 ==
LOC: PHED 21:25 → PHEDA 23:45 → PH5A 12-06 01:35
PROVIDERS: ADMIT Family Medicine; ATTEND Family Medicine
PROC: BT1F1ZZ Fluoroscopy of Left Kidney, Ureter and Bladder using Low Osmolar Contrast (ICD-10-PCS; 2016-12-06)
PROC: 0T9B80Z Drainage of Bladder with Drainage Device, Via Natural or Artificial Opening Endoscopic (ICD-10-PCS; 2016-12-06)
PROC: 0T778DZ Dilation of Left Ureter with Intraluminal Device, Via Natural or Artificial Opening Endoscopic (ICD-10-PCS; principal; 2016-12-06 14:05)
DX: N13.2 Hydronephrosis with renal and ureteral calculous obstruction (principal); I10 Essential (primary) hypertension; N20.0 Calculus of kidney; F41.9 Anxiety disorder, unspecified; M19.90 Unspecified osteoarthritis, unspecified site; M51.36 Other intervertebral disc degeneration, lumbar region; E78.00 Pure hypercholesterolemia, unspecified
CPT/HCPCS: 74000; 74176; 76000; 80048; 80053; 81001; 83036; 85025; 96361; 96374; 96375; C1769; C2617; J0360; J0696; J1100; J1170; J1885; J2250; J2270; J2405; J2765; J3010; J7030; J7120; Q9967

== ENCOUNTER → 2016-12-15 | Day surgery (SDC) | payer OTHER ==
[~2016-12-15] VITALS: Ht 182.9 cm; Wt 92.5 kg
[~2016-12-15] MED LIST changes: +ACETAMINOPHEN 1000 MG/100 ML 100 ML IV ONE; +CHLORHEXIDINE GLUCONATE 2 % 1 PACK (2 CLOTHS) TOPICAL PRN; +DO NOT ADM ANY ANTICOAGULANT DRUGS PRN; +INSULIN HUMAN REGULAR 1,000 UNITS/10 ML VIAL SQ PRN; +LACTATED RINGER'S 1000 ML IV PRN; +METO50TA PO; +METOPROLOL TARTRATE 25 MG TAB PO PRN; +ONDANSETRON HCL 4 MG/2 ML VIAL IV PUSH PRN; +PERC5TAB12 PO; +POVIDONE IODINE 5% (ANTISEPSIS KIT) 4 APPLICATIONS EACH NARE PRN; +SODIUM CHLORID 0.9% 500 ML IV PRN; +TAMS5CAP PO; +oxyCODONE/ACETAMINOPHEN 5 MG/325 MG TAB PO PRN
[2016-12-15 10:38] LABS: AUTOMATED NEUTROPHIL # 3.2 TH/MM3 (1.8-7.7); BASOPHIL # 0.1 TH/MM3 (0-0.2); BASOPHIL % 1.2 % (0.0-2.0); EOSINOPHIL # 0.4 TH/MM3 (0-0.4); EOSINOPHIL % 7.1 % (0.0-4.0); HEMATOCRIT 45.6 % (39.0-51.0); LYMPH % 27.7 % (9.0-44.0); LYMPHOCYTE # 1.7 TH/MM3 (1.0-4.8); MEAN CELL VOLUME 96.3 FL (80.0-100.0); MEAN CORPUSCULAR HEMOGLOBIN 33.8 PG (27.0-34.0); MEAN CORPUSCULAR HGB CONC 35.1 % (32.0-36.0); MONO % 10.2 % (0.0-8.0); NEUT % 53.8 % (16.0-70.0); PLATELET COUNT 275 TH/MM3 (150-450); RED BLOOD COUNT 4.74 MIL/MM3 (4.50-5.90); RED CELL DISTRIBUTION WIDTH 13.2 % (11.6-17.2)
[2016-12-15 10:41] LABS: HEMO FLAGS AUTO DIFF
--- NOTE | 2016-12-15 10:43 | RADRPT ---
EXAM DATE/TIME: 12/15/2016 09:26 [facility] COMPARISON: CT ABDOMEN & PELVIS W/O CONTRAST, December 05, 2016, 21:58. ABDOMEN KUB ONLY, December 06, 2016, 15:43 . INDICATIONS : Evaluate left kidney stones and stent. Pre op for lithotripsy. MEDICAL HISTORY : None. SURGICAL HISTORY : Appendectomy. Fusion, lumbar. ENCOUNTER: Initial ACUITY: 1 day PAIN SCORE: 3/10 LOCATION: Abdomen. FINDINGS: There is a stable left-sided double-J ureteral stent in place. 5 mm calcified density in the region o f the mid left ureter at the level of the L5 transverse process. Ill-defined calcified densities in t he superior pole the right kidney. A smaller punctate calcification near the inferior pole is not wel l-demonstrated. No new calcifications in the region of the bladder. Remainder of exam is unchanged. CONCLUSION: 1. Stable left double-J ureteral stent with likely 5 mm mid left ureteral calculus, as above. 2. Right-sided renal calculi are not well demonstrated. Stephen Cleveland MD on December 15, 2016 at 10:37 Board Certified Radiologist. This report was verified electronically.
[2016-12-15 11:22] LABS: SCAN/DIFF AUTO DIFF CONFIRMED
--- NOTE | 2016-12-15 13:29 | PD.OP ---
Operative Report Date of Surgery: Dec 15, 2016 Preoperative Diagnosis: (1) Ureteral calculus, left Postoperative Diagnosis: (1) Ureteral calculus, left Procedure: Extracorporeal shockwave lithotripsy of left ureteral calculus Surgeon: Darrian Laughlin Kennel Attendant(s): General Operation and Findings: Indication for procedure: Case of a pleasant 51-year-old gentleman with an obstructing left proximal ureteral calculus status post recent stent placement who presents now for extracorporeal shockwave lithotripsy. Operative procedure in detail: Patient was brought to the operating room suite and placed supine on the OR table. He was then placed on the general anesthesia. All pressure points were adequately padded. After appropriate timeout was undertaken I proceeded with localizing the patient's left ureteral calculus with fluoroscopy. Subsequent to this the patient received extracorporeal shockwave lithotripsy utilizing the Frode Piezolith 3000 device. The patient received a total of 3000 shocks with a maximum power setting of 20. At conclusion of the procedure the stone was slightly it operations analyst in intensity consistent with at least some degree of fragmentation. The patient tolerated the procedure without complications and was transferred to the PACU in satisfactory condition. Darrian Laughlin MD Dec 15, 2016 13:29
[2016-12-15 14:35] VITALS: BP 129/74; PULSE 82; RESP 20; TEMP 97.5; O2SAT 98
== END | disposition home or self-care (01) ==
LOC: HSDC 08:43
PROVIDERS: ATTEND Urology
DX: N20.1 Calculus of ureter (principal); Z01.818 Encounter for other preprocedural examination; I10 Essential (primary) hypertension; I49.3 Ventricular premature depolarization
CPT/HCPCS: 00872; 50590; 74000; 85025; J0131; J7120

== ENCOUNTER 2017-01-07 18:36 | Emergency (ER) | payer OTHER ==
[~2017-01-07] VITALS: Ht 182.9 cm; Wt 92.0 kg
[~2017-01-07 18:36] MED LIST changes: -ACETAMINOPHEN 1000 MG/100 ML 100 ML IV ONE; -CHLORHEXIDINE GLUCONATE 2 % 1 PACK (2 CLOTHS) TOPICAL PRN; -DO NOT ADM ANY ANTICOAGULANT DRUGS PRN; -INSULIN HUMAN REGULAR 1,000 UNITS/10 ML VIAL SQ PRN; -LACTATED RINGER'S 1000 ML IV PRN; -METOPROLOL TARTRATE 25 MG TAB PO PRN; -ONDANSETRON HCL 4 MG/2 ML VIAL IV PUSH PRN; -POVIDONE IODINE 5% (ANTISEPSIS KIT) 4 APPLICATIONS EACH NARE PRN; -SODIUM CHLORID 0.9% 500 ML IV PRN; -oxyCODONE/ACETAMINOPHEN 5 MG/325 MG TAB PO PRN
[2017-01-07 18:39] VITALS: BP 159/92; PULSE 96; RESP 18; TEMP 99; O2SAT 97
[2017-01-07] MEDS ORDERED: KETOROLAC TROMETHAMINE 30 MG/ML (IVP) VIAL IV PUSH ONE (19:00)
[2017-01-07] MEDS ORDERED: SODIUM CHLOR 0.9% 1000 ML INJ 1,000 ML IV ONE (19:00)
--- NOTE | 2017-01-07 19:04 | PD ---
HPI Chief Complaint: Flank/Kidney Pain Time Seen by Provider: 18:57 Travel History International Travel<30 days: No Contact w/Intl Traveler<30days: No Traveled to known affect area: No History of Present Illness HPI S/P LITHOTRIPSY 2 DAYS AGO WITH REMOVAL OF HIS STENT. NOW RETURNS WITH FLANK PAIN AGAIN....radiating to front, 10/14, denies assoc symptoms of n/v/d/cp/ abdpain, sharp pain..........no apparent alleviating or aggravating factors PFSH Past Medical History Arthritis: Yes Autoimmune Disease: No Anxiety: Yes Depression: No Heart Rhythm Problems: Yes (PVCs) Cancer: No Cardiac Catheterization: No Cardiovascular Problems: Yes (HTN) High Cholesterol: Yes Chest Pain: Yes Congestive Heart Failure: No Diabetes: No Diminished Hearing: No Endocrine: No Genitourinary: No Hepatitis: No Hiatal Hernia: No Hypertension: Yes (Borderline) Immune Disorder: No Kidney Stones: Yes Musculoskeletal: No Neurologic: Yes (HERNIATED DISK) Psychiatric: No Reproductive: No Respiratory: No Immunizations Current: Yes Myocardial Infarction: No Renal Failure: No Thyroid Disease: No Tetanus Vaccination: < 5 Years Influenza Vaccination: No Past Surgical History Abdominal Surgery: Yes (appy) AICD: No Appendectomy: Yes Cardiac Surgery: No Coronary Artery Bypass Graft: No Ear Surgery: No Endocrine Surgery: No Eye Surgery: No Genitourinary Surgery: No Gynecologic Surgery: No Joint Replacement: No Neurologic Surgery: Yes (l4-l5 back surgery) Oral Surgery: No Pacemaker: No Thoracic Surgery: No Other Surgery: Yes (LITHOTRIPSY/STENT) Social History Alcohol Use: Yes (4-5 beers daily) Tobacco Use: No Substance Use: No Allergies-Medications (Allergen,Severity, Reaction): Coded Allergies: penicillin G (Verified Allergy, Unknown, UNKNOWN, 01/11/17) PATIENT DOES NOT KNOW BUT WANTS ALLERGY Reported Meds & Prescriptions Reported Meds & Active Scripts Active Levaquin (Levofloxacin) 500 Mg Tablet 500 Mg PO DAILY First dose to be taken tomorrow morning Percocet (Oxycodone-Acetaminophen) 5-325 mg Tab 1-2 Tab PO Q6H PRN Flomax (Tamsulosin HCl) 0.4 Mg Cap 0.4 Mg PO HS Ketorolac (Ketorolac Tromethamine) 10 Mg Tab 10 Mg PO TID PRN Percocet (Oxycodone-Acetaminophen) 10-325 mg Tab 1 Tab PO Q6H PRN Lisinopril 10 Mg Tab 10 Mg PO DAILY Reported Metoprolol Tartrate 50 Mg Tab 50 Mg PO BID Review of Systems Except as stated in HPI: all other systems reviewed are Neg General / Constitutional: No: Fever Eyes: No: Visual changes HENT: No: Headaches Cardiovascular: No: Chest Pain or Discomfort Respiratory: No: Shortness of Breath Gastrointestinal: No: Abdominal Pain Genitourinary: Positive: Flank Pain Musculoskeletal: No: Pain Skin: No Rash Neurologic: No: Weakness Psychiatric: No: Depression Endocrine: No: Polydipsia Hematologic/Lymphatic: No: Easy Bruising Physical Exam Narrative GENERAL: SKIN: Warm and dry. HEAD: Atraumatic. Normocephalic. EYES: Pupils equal and round. No scleral icterus. No injection or drainage. ENT: No nasal bleeding or discharge. Mucous membranes pink and moist. NECK: Trachea midline. No JVD. CARDIOVASCULAR: Regular rate and rhythm. RESPIRATORY: No accessory muscle use. Clear to auscultation. Breath sounds equal bilaterally. GASTROINTESTINAL: Abdomen soft, non-tender, nondistended. MUSCULOSKELETAL: Extremities without clubbing, cyanosis, or edema. No obvious deformities. NEUROLOGICAL: Awake and alert. No obvious cranial nerve deficits. Motor grossly within normal limits. Five out of 5 muscle strength in the arms and legs. Normal speech. PSYCHIATRIC: Appropriate mood and affect; insight and judgment normal. Data Data Last Documented VS Orders Orders Basic Metabolic Panel (Bmp) (01/07/17 18:57) Iv Access Insert/Monitor (01/07/17 18:57) Ketorolac Inj (Toradol Inj) (01/07/17 19:00) Sodium Chlor 0.9% 1000 Ml Inj (Ns 1000 M (01/07/17 19:00) Ct Abd/Pel W/O Iv Contrast (01/07/17 19:08) Morphine Inj (Morphine Inj) (01/07/17 19:15) Ondansetron Inj (Zofran Inj) (01/07/17 19:15) Ed Discharge Order (01/07/17 20:27) Labs Laboratory Tests Test 01/07/17 19:00 Blood Urea Nitrogen 16 MG/DL Creatinine 1.40 MG/DL Random Glucose 95 MG/DL Calcium Level 8.6 MG/DL Sodium Level 137 MEQ/L Potassium Level 3.5 MEQ/L Chloride Level 103 MEQ/L Carbon Dioxide Level 22.4 MEQ/L Anion Gap 12 MEQ/L Estimat Glomerular Filtration Rate 54 ML/MIN [facility] Medical Decision Making Medical Screen Exam Complete: Yes Emergency Medical Condition: Yes Medical Record Reviewed: Yes Differential Diagnosis KDINEY STONES V RENAL FAILURE V UTI Narrative Course CT CONFIRMED 6X3MM STONE ON LEFT PROX URETER WELL RT KIDNEY STONES NOT YET ON URETER Diagnosis Primary Impression: Ureteral calculus, left Referrals: Darrian Laughlin MD FOR YOUR 6X3MM STONE ON LEFT PROXIMAL URETER Patient Instructions: General Instructions, Kidney Stones (ED) Scripts Tamsulosin (Flomax) 0.4 Mg Cap 0.4 MG PO HS for Manage Prostate Problems, #5 CAP 0 Refills Prov: Chase Felix MD 01/07/17 Ketorolac (Ketorolac) 10 Mg Tab 10 MG PO TID Y for Pain Management, #21 TAB 0 Refills Prov: Chase Felix MD 01/07/17 Oxycodone-Acetaminophen (Percocet) 10-325 mg Tab 1 TAB PO Q6H Y for PAIN, #20 TAB 0 Refills Prov: Chase Felix MD 01/07/17 Disposition: 01 DISCHARGE HOME Condition: Stable Chase Felix MD Jan 07, 2017 19:04
[2017-01-07] MEDS ORDERED: MORPHINE SULFATE 2 MG/ML INJ IV PUSH ONE (19:15)
[2017-01-07] MEDS ORDERED: ONDANSETRON HCL 4 MG/2 ML VIAL IV PUSH ONE (19:15)
[2017-01-07 19:19] LABS: POTASSIUM 3.5 MEQ/L (3.5-5.1)
[2017-01-07 19:22] LABS: BICARBONATE 22.4 MEQ/L (21.0-32.0)
--- NOTE | 2017-01-07 19:34 | RADRPT ---
EXAM DATE/TIME: 01/07/2017 19:18 [facility] COMPARISON: CT ABDOMEN & PELVIS W/O CONTRAST, December 05, 2016, 21:58. INDICATIONS : Status post lithotripsy and stent removal 2 days ago. Left flank pain with nausea. ORAL CONTRAST: No oral contrast ingested. RADIATION DOSE: 16.81 CTDIvol (mGy) MEDICAL HISTORY : Hypertension. Renal calculi. SURGICAL HISTORY : Appendectomy. Lithotripsy and stent removal ENCOUNTER: Initial ACUITY: 1 day PAIN SCALE: 9/10 LOCATION: Left flank TECHNIQUE: Volumetric scanning of the abdomen and pelvis was performed. Using automated exposure control and ad justment of the mA and/or kV according to patient size, radiation dose was kept as low as reasonably achievable to obtain optimal diagnostic quality images. DICOM format image data is available electro nically for review and comparison. FINDINGS: LOWER LUNGS: The visualized lower lungs are clear. LIVER: Homogeneous density without lesion. There is no dilation of the biliary tree. No calcified gallston es. SPLEEN: Normal size without lesion. PANCREAS: Within normal limits. KIDNEYS: There is a 6 x 3 mm proximal left ureteral stone causing moderate hydronephrosis of the left kidney. 3 small stones remaining in the right kidney. ADRENAL GLANDS: Within normal limits. VASCULAR: There is no aortic aneurysm. BOWEL/MESENTERY: The stomach, small bowel, and colon demonstrate no acute abnormality. There is no free intraperitone al air or fluid. ABDOMINAL WALL: Within normal limits. RETROPERITONEUM: There is no lymphadenopathy. BLADDER: No wall thickening or mass. REPRODUCTIVE: Within normal limits. INGUINAL: There is no lymphadenopathy or hernia. MUSCULOSKELETAL: Within normal limits for patient age. CONCLUSION: 6 x 3 x 7 mm calcification proximal left ureter causing moderate obstruction of the left kidney. 3 st ones remain within the right kidney. Clay Ramirez MD on January 07, 2017 at 19:30 Board Certified Radiologist. This report was verified electronically.
[2017-01-07] MEDS ORDERED: KETO10 PO (20:14)
[2017-01-07] MEDS ORDERED: TAMS5CAP PO (20:14)
[2017-01-07] MEDS ORDERED: PERC10TA27 PO (20:14)
[2017-01-07 20:37] VITALS: BP 158/88; TEMP 98.4
[2017-01-10] MEDS ORDERED: PERC5TAB12 PO (08:59)
[2017-01-11] MEDS ORDERED: PERC5TAB12 PO (12:59)
[2017-01-11] MEDS ORDERED: LEVA500T33 PO (12:59)
== END 2017-01-07 20:48 | disposition home or self-care (01) ==
LOC: PHED 18:36
DX: N13.2 Hydronephrosis with renal and ureteral calculous obstruction (principal); I10 Essential (primary) hypertension
CPT/HCPCS: 74176; 80048; 96361; 96374; 96375; 99285; J1885; J2270; J2405; J7030

== ENCOUNTER → 2017-01-11 | Day surgery (SDC) | payer OTHER ==
[~2017-01-11] VITALS: Ht 182.9 cm; Wt 92.9 kg
[~2017-01-11] MED LIST changes: +ACETAMINOPHEN 1000 MG/100 ML 100 ML IV ONE; +CHLORHEXIDINE GLUCONATE 2 % 1 PACK (2 CLOTHS) TOPICAL PRN; +DEXAMETHASONE SOD PHOS 4 MG/ML VIAL IV ONE; +DO NOT ADM ANY ANTICOAGULANT DRUGS PRN; +FUROSEMIDE 40 MG/4 ML VIAL ONE; +GLYCOPYRROLATE 1 MG/5 ML SYRINGE IV PUSH ONE; +INSULIN HUMAN REGULAR 1,000 UNITS/10 ML VIAL SQ PRN; +IOHEXOL 350 MG/ML 50 ML BTL (for RAD DIAG) IVCONTRAST ONE; +KETO10 PO; +LACTATED RINGER'S 1000 ML INJ 2,000 ML IV ONE; +LACTATED RINGER'S 1000 ML IV PRN; +LEVA500T33 PO; +LEVOFLOXACIN 500 MG PREMIX INJ 100 ML IV ONE; +LIDOCAINE HCL 1% PF 5 ML SYRINGE OTHER ONE; +METOPROLOL TARTRATE 25 MG TAB PO PRN; +MIDAZOLAM HCL 2 MG/2 ML VIAL IV ONE; +NEOSTIGMINE 3 MG/3 ML SYR IV ONE; +ONDANSETRON HCL 4 MG/2 ML VIAL IV PUSH ONE; +ONDANSETRON HCL 4 MG/2 ML VIAL IV PUSH PRN; +PERC10TA27 PO; +PHENYLEPH/NS 1000 MCG/10 ML SYR IV ONE; +POVIDONE IODINE 5% (ANTISEPSIS KIT) 4 APPLICATIONS EACH NARE PRN; +PROPOFOL 200 MG/20 ML AMP IV ONE; +ROCURONIUM INJ 50 MG/5 ML SYRINGE IV PUSH ONE; +SODIUM CHLORID 0.9% 500 ML IV PRN; +ceFAZolin INJ 1,000 MG VIAL IV ONE; +ePHEDrine/NS 25 MG/5 ML SYR IV ONE; +oxyCODONE/ACETAMINOPHEN 5 MG/325 MG TAB PO PRN
--- NOTE | 2017-01-11 12:54 | PD.OP ---
Operative Report Date of Surgery: Jan 11, 2017 Preoperative Diagnosis: (1) Ureteral calculus, left Postoperative Diagnosis: (1) Ureteral calculus, left Procedure: Cystoscopy, left retrograde pyelogram, left ureteroscopy/renoscopy, laser lithotripsy of ureteral calculus and insertion of left ureteral catheter Anesthesia: General Surgeon: Darrian Laughlin Repair Coil Winder(s): None Operation and Findings: Indication for procedure: Case of a pleasant 51-year-old gentleman with a history of a left proximal ureteral calculus measuring approximately 7 mm refractory to shockwave lithotripsy who presents now for left ureteroscopy with laser lithotripsy. Operative procedure in detail: Patient was brought to the operating room suite and placed supine on the OR table. He was then placed under general anesthesia. He was then repositioned in the dorsolithotomy position and prepped and draped in normal sterile fashion. After appropriate timeout was undertaken I proceeded with cystoscopic evaluation utilizing the rigid cystoscope with a 30 lens and 20 Chadian sheath. There was patent without stricture formation. The prostatic urethra was nonobstructing. Further passive cystoscope within the urinary bladder revealed both right and left ureteral orifices to be in correct anatomic position. There was clear reflux of urine from the right and no reflux of urine on the left. I then proceeded with passing a 6 Chadian open-ended ureteral catheter several centimeters up the left ureter and a left retrograde pyelogram study was performed. This confirmed the obstructing stone located at the proximal left ureter. I then placed a sensor appropriate FiberWire through the open-ended catheter and further advance a wire into the left renal pelvis. The cystoscope was withdrawn and the wire secured to a sterile drape with a hemostat. I then advanced the semirigid ureteroscope alongside the previously past wire up to the point of the left ureteropelvic junction. It became apparent that point that the stone had percolated up into the kidney. I next exchange the self dilating ureteroscope with a flexible scope and further advanced the scope all the way up into the left kidney and located the calculus. The calculus was grasped with a 2.4 Chadian stone basket and brought down to the point of the ureteropelvic junction. It could not be advanced further caudad as the stone was too large for the caliber of the ureter. The basket was left in place and the flexible ureteroscope was withdrawn and reintroduced alongside the basket catheter. Under direct vision the stone was then broken up with the holmium laser 200 fiber into multiple small pieces. The basket one point had to be exchanged as one of the limbs severed with the laser energy. Once the stone was broken up into multiple small pieces, the larger fragments were retrieved under direct vision with the stone basket. These fragments were sent off for chemical composition analysis. Repeat flexible ureteroscopy at the conclusion of the procedure demonstrated only a few tiny stone fragments along the course of the ureter that should easily pass. The flexible ureteroscope was exchanged back to the cystoscope and a left retrograde pyelogram study was performed again using the 6 Chadian open-ended ureteral catheter. There was prompt filling and drainage of contrast noted. The ureteral catheter was advanced up to the point of the left UPJ over the sensor wire that was previously placed and the wire withdrawn. A 16 Chadian 10 cc Rogers catheter was placed and the open-ended ureteral catheter was anchored to the Rogers via a connector. Both catheters were then placed to gravity drainage. The patient tolerated the procedures without complications and was transferred to the PACU in satisfactory condition. Darrian Laughlin MD Jan 11, 2017 12:54
[2017-01-11 14:47] VITALS: BP 158/92; PULSE 76; RESP 18; TEMP 97.7; O2SAT 99
== END | disposition home or self-care (01) ==
LOC: HSDC 08:08
PROVIDERS: ATTEND Urology
DX: N20.1 Calculus of ureter (principal)
CPT/HCPCS: 00918; 52353; 74420; 82365; 82370; 88300; C1769; J0131; J0690; J1100; J1956; J2250; J2370; J2405; J2710; J3010; J7120; Q9967; J1940

== ENCOUNTER 2017-02-01 18:49 | Emergency (ER) | payer OTHER ==
[~2017-02-01 18:49] MED LIST changes: -ACETAMINOPHEN 1000 MG/100 ML 100 ML IV ONE; -CHLORHEXIDINE GLUCONATE 2 % 1 PACK (2 CLOTHS) TOPICAL PRN; -DEXAMETHASONE SOD PHOS 4 MG/ML VIAL IV ONE; -DO NOT ADM ANY ANTICOAGULANT DRUGS PRN; -FUROSEMIDE 40 MG/4 ML VIAL ONE; -GLYCOPYRROLATE 1 MG/5 ML SYRINGE IV PUSH ONE; -INSULIN HUMAN REGULAR 1,000 UNITS/10 ML VIAL SQ PRN; -IOHEXOL 350 MG/ML 50 ML BTL (for RAD DIAG) IVCONTRAST ONE; -LACTATED RINGER'S 1000 ML INJ 2,000 ML IV ONE; -LACTATED RINGER'S 1000 ML IV PRN; -LEVOFLOXACIN 500 MG PREMIX INJ 100 ML IV ONE; -LIDOCAINE HCL 1% PF 5 ML SYRINGE OTHER ONE; -METOPROLOL TARTRATE 25 MG TAB PO PRN; -MIDAZOLAM HCL 2 MG/2 ML VIAL IV ONE; -NEOSTIGMINE 3 MG/3 ML SYR IV ONE; -ONDANSETRON HCL 4 MG/2 ML VIAL IV PUSH ONE; -ONDANSETRON HCL 4 MG/2 ML VIAL IV PUSH PRN; -PHENYLEPH/NS 1000 MCG/10 ML SYR IV ONE; -POVIDONE IODINE 5% (ANTISEPSIS KIT) 4 APPLICATIONS EACH NARE PRN; -PROPOFOL 200 MG/20 ML AMP IV ONE; -ROCURONIUM INJ 50 MG/5 ML SYRINGE IV PUSH ONE; -SODIUM CHLORID 0.9% 500 ML IV PRN; -ceFAZolin INJ 1,000 MG VIAL IV ONE; -ePHEDrine/NS 25 MG/5 ML SYR IV ONE; -oxyCODONE/ACETAMINOPHEN 5 MG/325 MG TAB PO PRN
[2017-02-01 18:52] VITALS: BP 180/104; PULSE 107; RESP 16; TEMP 98.9; O2SAT 99
[2017-02-01 20:00] LABS: AUTOMATED NEUTROPHIL # 4.9 TH/MM3 (1.8-7.7); BASOPHIL # 0.1 TH/MM3 (0-0.2); EOSINOPHIL # 0.2 TH/MM3 (0-0.4); HEMATOCRIT 44.4 % (39.0-51.0); HEMO FLAGS DIFF FINAL; LYMPH % 30.3 % (9.0-44.0); LYMPHOCYTE # 2.5 TH/MM3 (1.0-4.8); MEAN CORPUSCULAR HGB CONC 35.1 % (32.0-36.0); MONO % 7.4 % (0.0-8.0); NEUT % 59.3 % (16.0-70.0); PLATELET COUNT 253 TH/MM3 (150-450); RED BLOOD COUNT 4.72 MIL/MM3 (4.50-5.90); RED CELL DISTRIBUTION WIDTH 12.7 % (11.6-17.2); WHITE BLOOD COUNT 8.3 TH/MM3 (4.0-11.0)
[2017-02-01 20:28] LABS: BICARBONATE 23.1 MEQ/L (21.0-32.0); POTASSIUM 3.3 MEQ/L (3.5-5.1)
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
== END 2017-02-01 21:11 | disposition home or self-care (01) ==
LOC: NEPD 18:49
DX: F32.9 Major depressive disorder, single episode, unspecified (principal); I10 Essential (primary) hypertension; Z79.899 Other long term (current) drug therapy
CPT/HCPCS: 80048; 80307; 85025; 99283